=== PATIENT | male | born 1950 | race Caucasian/White ===

== ENCOUNTER 2016-04-28 17:19 | Emergency (ER) | payer OTHER ==
[2016-04-28 22:08] LABS: Hematocrit 42 % (42-52); Hemoglobin 14.1 g/dl (14.0-18.0); Mean Corpuscular HGB Conc 33 g/dl (31-36); Mean Corpuscular Hemoglobin 29 pg (27-31); Mean Corpuscular Volume 88 fL (80-94); Mean Platelet Volume 9 um3 (7.4-10.4); Red Blood Count 4.78 10^6/ul (4.0-5.4); Red Cell Distribution Width 15 % (10.5-15); White Blood Count 8.3 10^3/ul (3.5-10.8)
[2016-04-28 22:24] LABS: Albumin 4.2 g/dL (3.2-5.2); Calcium 9.4 mg/dL (8.6-10.3); EGFR African American 96.7 (>60); EGFR Non-African American 75.2 (>60); Potassium 3.4 mmol/L (3.5-5.0); Total Bilirubin 0.5 mg/dL (0.2-1.0); Total Protein 7.2 g/dL (6.4-8.9)
[2016-04-28] MEDS ORDERED: Rivaroxaban TAB(*) 15 MG PO ONE ×2 (22:36)
--- NOTE | 2016-04-28 22:40 | ED ---
Yin Cole Anna, scribed for Rene Holt MD on 04/28/16 at 2156 . Lower Extremity - HPI Summary HPI Summary: Patient is a 65 y/o coming to [facility] presenting with left lower extremity pain that began yesterday. He had an US today that revealed a thrombophlebitis. He had a right leg clot 8 years ago after having a heel spur removed and used Morphorin for three months. He had surgery on his right leg on 03/15/2016 and was taking Aspirin from that time until 04/11/2016. He denies CP, SOB. - History of Current Complaint Chief Complaint: EDExtremityLower Stated Complaint: LEFT LEG BLOOD CLOTT COMMING FROM DOC Time Seen by Provider: 04/28/16 21:44 Hx Obtained From: Patient Onset/Duration: Still Present Pain Intensity: 1 Pain Scale Used: 0-10 Numeric - Allergies/Home Medications Allergies/Adverse Reactions: Allergies Allergy/AdvReac Type Severity Reaction Status Date / Time No Known Allergies Allergy Verified 04/28/16 22:01 Home Medications: Home Medications Cosopt (NF) 04/28/16 [History] Diamox 04/28/16 [History] PMH/Surg Hx/FS Hx/Imm Hx Endocrine/Hematology History: Denies: Hx Diabetes Cardiovascular History: Reports: Hx Deep Vein Thrombosis - right leg, 8 years ago Denies: Hx Hypertension, Hx Pacemaker/ICD History: Denies: Hx Renal Disease Sensory History: Denies: Hx Hearing Aid Psychiatric History: Denies: Hx Panic Disorder - Surgical History Surgery Procedure, Year, and Place: TONSILS 1955. APPENDIX 1963-VASECTOMY 1980. REPAIR RIGHT SEPERATED SHOULDER 1985-RIGHT HEEL SPUR 2007. REPAIR LEFT SEPERATED SHOULDER 2007. CATARACTS BILATERAL 2010 Infectious Disease History: No Infectious Disease History: Denies: Traveled Outside the [place] in Last 30 Days - Family History Known Family History: Positive: Diabetes - Father, Other - Hx Bladder CA in father - Social History Occupation: Employed Full-time Hx Substance Use: No Hx Tobacco Use: No Review of Systems Negative: Chest Pain Negative: Shortness Of Breath Positive: Myalgia All Other Systems Reviewed And Are Negative: Yes Physical Exam Triage Information Reviewed: Yes Vital Signs On Initial Exam: Initial Vitals Temp Pulse Resp BP Pulse Ox 98.3 F 60 16 139/76 100 04/28/16 17:53 04/28/16 17:53 04/28/16 17:53 04/28/16 17:53 04/28/16 17:53 Vital Signs Reviewed: Yes Appearance: Positive: Well-Appearing, No Pain Distress Skin: Positive: Warm, Skin Color Reflects Adequate Perfusion, Dry Head/Face: Positive: Normal Head/Face Inspection Eyes: Positive: EOMI, MISSY ENT: Positive: Normal ENT inspection Neck: Positive: Supple, Nontender Respiratory/Lung Sounds: Positive: Clear to Auscultation, Breath Sounds Present Cardiovascular: Positive: RRR Abdomen Description: Positive: Nontender, Soft Bowel Sounds: Positive: Present Musculoskeletal: Positive: Strength/ROM Intact, Other - Tenderness in left calf Neurological: Positive: Normal, Sensory/Motor Intact, Alert, Oriented to Person Place, Time Psychiatric: Positive: Affect/Mood Appropriate Diagnostics - Vital Signs Vital Signs Temp Pulse Resp BP Pulse Ox 04/28/16 17:53 98.3 F 60 16 139/76 100 - Laboratory Lab Results: Lab Results 04/28/16 04/28/16 04/28/16 Range/Units 21:57 21:57 21:57 WBC 8.3 (3.5-10.8) 10^3/ul RBC 4.78 (4.0-5.4) 10^6/ul Hgb 14.1 (14.0-18.0) g/dl Hct 42 (42-52) % MCV 88 (80-94) fL MCH 29 (27-31) pg MCHC 33 (31-36) g/dl RDW 15 (10.5-15) % Plt Count 163 (150-450) 10^3/ul MPV 9 (7.4-10.4) um3 Neut % (Auto) 66.4 (38-83) % Lymph % (Auto) 20.9 L (25-47) % Camas % (Auto) 8.7 (1-9) % Eos % (Auto) 3.2 (0-6) % Baso % (Auto) 0.8 (0-2) % Absolute Neuts (auto) 5.5 (1.5-7.7) 10^3/ul Absolute Lymphs (auto) 1.7 (1.0-4.8) 10^3/ul Absolute Monos (auto) 0.7 (0-0.8) 10^3/ul Absolute Eos (auto) 0.3 (0-0.6) 10^3/ul Absolute Basos (auto) 0.1 (0-0.2) 10^3/ul Absolute Nucleated RBC 0.01 10^3/ul Nucleated RBC % 0.1 INR (Anticoag Therapy) 0.94 (0.89-1.11) APTT 28.7 (26.0-36.3) seconds Sodium 136 (133-145) mmol/L Potassium 3.4 L (3.5-5.0) mmol/L Chloride 107 (101-111) mmol/L Carbon Dioxide 24 (22-32) mmol/L Anion Gap 5 (2-11) mmol/L BUN 14 (6-24) mg/dL Creatinine 1.00 (0.67-1.17) mg/dL Est GFR ( Amer) 96.7 (>60) Est GFR (Non-Af Amer) 75.2 (>60) BUN/Creatinine Ratio 14.0 (8-20) Glucose 110 H (70-100) mg/dL Calcium 9.4 (8.6-10.3) mg/dL Total Bilirubin 0.50 (0.2-1.0) mg/dL AST 15 (13-39) U/L ALT 12 (7-52) U/L Alkaline Phosphatase 74 (34-104) U/L Total Protein 7.2 (6.4-8.9) g/dL Albumin 4.2 (3.2-5.2) g/dL Globulin 3.0 (2-4) g/dL Albumin/Globulin Ratio 1.4 (1-3) Result Diagrams: 04/28/16 21:57 04/28/16 21:57 Lab Statement: Any lab studies that have been ordered have been reviewed, and results considered in the medical decision making process. Lower Extremity Course/Dx - Course Assessment/Plan: PATIENT WELL IN ED. NO CHEST PAIN/SOB. DISCUSSED RESULTS WITH PATIENT. DISCUSSED VARIOUS ANTICOAGULANTS. AT THIS TIME, PATIENT WISHES TO TO XARELTO 15MG TONIGHT AND TOMORROW AM AND THEN DISCUSS CONTINUED ANTICOAGULATION WITH HIS PMD. DISCHARGE HOME STABLE. - Diagnoses Provider Diagnoses: DVT (deep venous thrombosis) Discharge - Discharge Plan Condition: Stable Disposition: HOME Referrals: Emmett Weaver MD [Primary Care Provider] - Additional Instructions: FOLLOW UP WITH YOUR DOCTOR TOMORROW FOR FOLLOW UP OF YOUR LEFT LEG DVT. TAKE XARELTO DIRECTED. DISCUSS WITH YOUR DOCTOR TOMORROW ABOUT FURTHER ANTICOAGULATION. RETURN TO THE EMERGENCY DEPARTMENT FOR ANY WORSENING OF YOUR CONDITION OR QUESTIONS OR CONCERNS. The documentation as recorded by the Yin christie Anna accurately reflects the service I personally performed and the decisions made by me, Rene Holt MD.
[2016-04-28 23:18] VITALS: BP 121/64
== END 2016-04-28 23:16 | disposition home or self-care (01) ==
LOC: ED 17:19
DX: I82.402 Acute embolism and thrombosis of unspecified deep veins of left lower extremity (principal)
CPT/HCPCS: 36415; 80053; 85025; 85610; 85730; 99282